=== PATIENT | male | born 1985 | race Caucasian/White ===

== ENCOUNTER 2023-10-13 06:06 | Emergency (ER) | payer OTHER ==
[2023-10-13] MEDS ORDERED: Ketorolac Tromethamine 30 MG/ML VIAL ONE ×2 (06:34→08:00)
[2023-10-13] MEDS ORDERED: Sodium Chloride 0.9% 1,000 ML ONE (06:34)
[2023-10-13] MEDS ORDERED: Tamsulosin HCl 0.4 MG CAP ONE (06:34)
[2023-10-13 06:37] LABS: Bilirubin Small (Negative); Blood, Urine Large (Negative); Glucose, Urine (Dipstick) Negative (Negative); Ketone, Urine Trace mg/dL (Negative); Leukocyte Negative (Negative); Nitrite Negative (Negative); Protein, Urine (Dipstick) 100 mg/dL (Neg-Trace); Urobilinogen 0.2 mg/dL (Less than 2); pH, Urine 5.5 (5.0-9.0)
[2023-10-13 06:40] LABS: Bacteria/HPF 1+ HPF (None Seen); CAUTI Indications for Culture Pelvic or flank pain; Calcium Oxalate Crystals 1+ HPF (None Seen); Clarity Cloudy (Clear); Mucous/LPF 1+ LPF (<2+); RBC/HPF Greater than 50 HPF (0-3); Specific Gravity, Urine 1.026 (1.002-1.036); Squamous Epithelial 0-3 HPF (0-3); WBC/HPF 0-3 HPF (0-3)
[2023-10-13 06:41] LABS: Urine Culture Reflex No No
[2023-10-13 06:44] LABS: Eosinophils 1 % (0-10); Hematocrit 52.6 % (42.0-52.0); Hemoglobin 16.6 g/dL (14.0-18.0); Lymphocytes 28 % (21-51); MDiff Complete? YES; Mean Corpuscular HGB CONC 31.5 g/dL (32.0-36.0); Mean Corpuscular Hemoglobin 29.5 pg (27.0-31.0); Mean Corpuscular Volume 93.9 fl (78.0-98.0); Mean Platelet Volume 11.2 fL (7.4-10.4); Monocytes 8 % (0-10); Neutrophil 63 % (42-75); Platelet Adequacy Comment Appears Adequate; Platelet Count 207 10x3/uL (130-400); RBC Distribution Width 12.7 % (11.5-14.5)
[2023-10-13 06:54] LABS: ALT (SGPT) 26 U/L (8-55); AST (SGOT) 15 U/L (5-34); Albumin 4.4 g/dL (3.5-5.0); Alkaline Phosphatase 66 U/L (40-110); Anion Gap 16 mmol/L (10-20); BUN (Urea Nitrogen) 10 mg/dL (8.9-20.6); Bilirubin, Total 0.9 mg/dL (0.2-1.2); Calc. Creatinine Clearance 0 mL/min (70-130); Calcium 9.3 mg/dL (7.8-10.44); Carbon Dioxide 24 mmol/L (22-29); Chloride 105 mmol/L (98-107); Estimated GFR 86; Globulin 2.8 g/dL (2.4-3.5); Glucose 98 mg/dL (70-105); Lipase 26 U/L (8-78); Potassium 3.8 mmol/L (3.5-5.1); Protein, Total 7.2 g/dL (6.0-8.3); Sodium 141 mmol/L (136-145); Troponin I 0.016 ng/mL (< 0.028)
== END 2023-10-13 08:15 | disposition home or self-care (01) ==
LOC: MADERS 06:06
DX: N13.2 Hydronephrosis with renal and ureteral calculous obstruction (principal); I10 Essential (primary) hypertension; F17.290 Nicotine dependence, other tobacco product, uncomplicated
CPT/HCPCS: 74176; 80053; 81001; 83605; 83690; 84484; 85025; 96361; 96374; 96376; J1885; J7050